=== PATIENT | female | born 1965 | race Caucasian/White ===

== ENCOUNTER 2021-04-15 08:37 | Emergency (ER) | payer MEDICAID, SELFPAY ==
[~2021-04-15] VITALS: Ht 165.1 cm; Wt 89.8 kg
[2021-04-15 08:44] VITALS: BP_SYST 122
--- NOTE | 2021-04-15 08:50 | NUR ---
Patient to TENT 1 to gown for evaluation. Side rails up.
--- NOTE | 2021-04-15 08:53 | NUR ---
PT ARRIVES VIA BLS. PT TEST POSITIVE FOR COVID YESTERDAY. RECEIVED THE FIRST DOSE OF HER COVID VACCINE ONLY. PT REPORTS SHE HAS A TEMP THAT SHE IS UNABLE TO CONTROL AND FEELS SOB. CURRENT TEMP IS 99.1. O2 SAT IS 100% ON RA AND IS SPEAKING IN COMPLETE SENTENCES.
--- NOTE | 2021-04-15 09:00 | NUR ---
# 20 gauge angiocath placed to lac. Use of asceptic technique. Opsite placed over site. Blood return noted. Blood for lab drawn from site. Flushed with 10 cc of normal saline. No evidence of infiltration noted. Patient tolerated well.
--- NOTE | 2021-04-15 09:10 | NUR ---
LUCAS Wiggins at bedside examining patient.
[2021-04-15] MEDS ORDERED: NACL 0.9% 1,000 ML IV ONE (09:30)
[2021-04-15 09:34] LABS: BASOPHILS % (AUTO) 0.4 % (0.0-2.0); HEMATOCRIT 38.4 % (36-48); HEMOGLOBIN 13.2 g/dL (12.0-16.0); LYMPHOCYTES # (AUTO) 0.9 K/uL (1.0-5.5); LYMPHOCYTES % (AUTO) 15.4 % (20.5-51.5); MEAN CORPUSCULAR HEMOGLOBIN 31 pg (27-31); MEAN CORPUSCULAR HGB CONC 34 % (32-36); MEAN CORPUSCULAR VOLUME 91 fL (79.0-98.0); MONOCYTES # (AUTO) 0.4 K/uL (0.0-1.0); MONOCYTES % (AUTO) 7.3 % (1.7-9.3); NEUTROPHILS # (AUTO) 4.4 K/uL (1.8-7.7); NEUTROPHILS % (AUTO) 76.9 % (40.0-70.0); PLATELET COUNT (AUTO) 214 K/uL (130-430); RED BLOOD CELL COUNT(AUTO) 4.24 MIL/uL (4.2-6.2); RED CELL DISTRIBUTION WIDTH 13.3 % (9.0-15.0); WHITE BLOOD COUNT (AUTO) 5.7 K/uL (4.8-10.8)
[2021-04-15 09:40] LABS: BILIRUBIN,URINE NEGATIVE (NEGATIVE); BLOOD, URINE 2+ (NEGATIVE); CLARITY/URINE CLEAR (CLEAR); COLOR,URINE YELLOW (YELLOW); GLUCOSE,URINE NEGATIVE (NEGATIVE); KETONES,URINE 1+ (NEGATIVE); LEUKOCYTE ESTERASE ,URINE NEGATIVE (NEGATIVE); NITRITE, URINE NEGATIVE (NEGATIVE); PH,URINE 5.5 (5.0-8.0); PROTEIN URINE 2+ (NEGATIVE); UROBILINOGEN,URINE 0.2 (0.2-1.0)
[2021-04-15 09:44] LABS: CALCIUM 8.6 mg/dL (8.4-11.0); CREATININE 1.15 mg/dL (0.55-1.30); POTASSIUM 4.2 mmol/L (3.5-5.1)
[2021-04-15 09:50] LABS: ALBUMIN 3.2 g/dL (3.4-4.8); INR 0.9 (0.8-1.2); PROTHROMBIN TIME 9.9 SECS (9.5-12.5); TOTAL BILIRUBIN 0.3 mg/dL (0.0-1.0)
[2021-04-15 09:53] LABS: WBC,URINE 0-3 /HPF (0-3)
[2021-04-15 09:54] LABS: BACTERIA,URINE FEW /HPF (None Seen)
[2021-04-15] MEDS ORDERED: METOCLOPRAMIDE HCL 10 MG/2 ML VIAL IVP ONE (10:00)
[2021-04-15] MEDS ORDERED: ACETAMINOPHEN 500 MG TABLET PO ONE (10:00)
[2021-04-15 11:38] VITALS: BP_SYST 122
--- NOTE | 2021-04-15 11:38 | NUR ---
Patient given written and verbal discharge instructions and verbalizes understanding. ER MD discussed with patient the results and treatment provided. Patient in stable condition. ID arm band removed. IV catheter removed intact and dressing applied, no active bleeding. Patient educated on pain management and to follow up with PMD. Pain Scale 3/10. Opportunity for questions provided and answered. Medication side effect fact sheet provided.
== END 2021-04-15 11:38 | disposition home or self-care (01) ==
LOC: SED 08:37
DX: U07.1 COVID-19 (principal); E86.0 Dehydration; R31.29 Other microscopic hematuria; K52.89 Other specified noninfective gastroenteritis and colitis; R91.1 Solitary pulmonary nodule; I10 Essential (primary) hypertension; E11.9 Type 2 diabetes mellitus without complications
CPT/HCPCS: 36415; 71045; 80053; 81000; 83605; 84484; 85025; 85610; 85730; 87040; 87086; 93005; 96361; 96374; 99285; J2765; J7030